=== PATIENT | male | born 1970 | race Caucasian/White ===

== ENCOUNTER → 2017-02-08 | Outpatient (CLI) | payer BC ==
--- NOTE | 2017-02-08 15:10 | CT ---
EXAMINATION TYPE: CT abdomen pelvis wo con DATE OF EXAM: 02/08/2017 COMPARISON: 04/27/2010 HISTORY: 46-year-old male Hematuria and bilateral flank pain CT DLP: 827 mGycm. Automated exposure control for dose reduction was used. TECHNIQUE: Contiguous axial scanning of the abdomen and pelvis without IV contrast. Coronal and sagit huseyin reconstructions performed. FINDINGS: The heart is normal size without pericardial effusion. Incidentally, there is a 2.3 cm low-density le angel along the right side of the cardiac base, axial image 4. Visualized lower lungs are otherwise cl ear without pleural effusion. There are a number of hypodense lesions within the liver measuring up to 2.8 cm and were present back on 04/27/2010 compatible with benign underlying lesion such as complicated cysts or hemangiomas. Gallbladder, adrenal glands, spleen, and pancreas show no gross abnormality. Numerous nonobstructive right-sided renal calculi measuring up to 3 mm. Approximately 2 nonobstructiv e calculi in the left kidney measuring up to 3 mm. There is a 1.5 cm hypodense lesion posterior upper to midpole right kidney which seems to have an present on 04/27/2010 but now larger. A cyst is suspec elodia but it is incompletely characterized on this study. No suspicious calcification seen along the course of either ureter or hydronephrosis. No dilated small bowel, free fluid, or free air. Small fatty umbilical hernia. No mesenteric or retro peritoneal lymphadenopathy. Normal appendix. Mild stool within the right hemicolon Bladder is urine distended. 3 mm calcification posterior aspect of the left side of the bladder. Pros avila gland measures 3.7 cm wide. No abnormal fluid collection in the pelvis or pelvic lymphadenopathy seen. Bones: No osseous destructive process. IMPRESSION: 1. Bilateral nephrolithiasis measuring up to 3 mm. Calculi are numerous on the right side. 2. No hydronephrosis. However, a 3 mm calculus at the left UVJ could be at the ureteral orifice or c ould have already passed into the bladder. 3. Multiple liver lesions measuring up to 2.8 cm do not seem to represent cysts but were present cady k in 2009 suggesting a benign etiology. 4. Incidentally seen 2.3 cm lesion along the right side of the cardiac base. A pericardial cyst is f avored. Recommend contrast enhanced CT chest on a nonemergent basis to further characterize. This cou ld be performed in 3 months and would also determine interval stability.
== END | disposition home or self-care (01) ==
LOC: RADCTMAIN 14:16
PROVIDERS: ATTEND Family Medicine
DX: N20.0 Calculus of kidney (principal); N20.1 Calculus of ureter; K76.9 Liver disease, unspecified
CPT/HCPCS: 74176

== ENCOUNTER → 2017-02-16 | Outpatient (CLI) | payer BC ==
--- NOTE | 2017-02-16 18:25 | CT ---
EXAMINATION TYPE: CT chest abdomen w con DATE OF EXAM: 02/16/2017 COMPARISON: 02/08/2017 HISTORY: Abnormal scan on 02/08/17. Follow up. CT DLP: 625.1 mGycm. Automated Exposure Control for Dose Reduction was Utilized. CONTRAST: CT scan of the thorax, abdomen and pelvis is performed with IV Contrast, patient injected with 100 mL of Omnipaque 300. FINDINGS: The lungs are clear of infiltrate. There is no evidence of a pulmonary mass. There is a 2.5 x 2 cm ov al-shaped fluid area at the right cardiac border that is probably a pericardial cyst. There is no ple ural effusion. There are multiple low-density areas in the liver that measure up to 2.5 cm. There is some peripheral contrast emesis probably due to hemangiomata. Spleen pancreas gallbladder appear normal. Bile ducts are not dilated. There is no adrenal mass. There is a 2 cm cortical cyst on the posterior left kidney. There is no hyd ronephrosis. There is no retroperitoneal adenopathy. Appendix appears normal. There is no ascites. I see no intestinal wall thickening. There are no dilated loops. I see no bony destructive process. IMPRESSION: Small pericardial cyst on the right side without significant change compared to 02/08/2017 . Small left renal cortical cyst. Multiple hypodense liver lesions consistent with hemangiomata that ar e unchanged. These appear unchanged compared to 04/27/2010. No evidence of renal obstruction.
== END | disposition home or self-care (01) ==
LOC: RADCTMAIN 15:28
PROVIDERS: ATTEND Family Medicine
DX: I31.8 Other specified diseases of pericardium (principal); K76.89 Other specified diseases of liver; R22.2 Localized swelling, mass and lump, trunk; Z88.0 Allergy status to penicillin
CPT/HCPCS: 71260; 74160; Q9967

== ENCOUNTER → 2018-05-16 | Outpatient (CLI) | payer BC ==
--- NOTE | 2018-05-16 17:01 | CONS ---
CONSULTATION REASON FOR CONSULTATION: Loud snoring. This is a 48-year-old male patient whose primary care physician is Dr. Bazzi. He presented to the sleep center because of loud snoring and some concerns about him quitting breathing at night. The patient has been sleeping next to for the past 10 years. He has been told that he snores very loudly, to the point where she is unable to sleep with him in the same bedroom. They typically go to bed at around 11:00, and between 11 and 2 he sleeps in the same bedroom and ultimately has to move out or she has to move out because of his loud snoring. At times he has been also noted to quit breathing. 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 He does not feel drowsy or sleepy or non- refreshed. His Keyport Score is 10. He has never been involved in a motor vehicle accident nor has he slept behind the wheel for any reason. He sleeps on his side. He occasionally drinks alcohol. No history of excessive caffeine intake. No grinding of the teeth. No sleepwalking. No anxiety. No palpitation. No heartburn. No restlessness in the lower extremities. This patient typically goes to bed around midnight and wakes up at 7:30 in the morning. He averages around 7 hours of sleep. It takes him a few minutes to fall asleep. He does not take any naps during the day. His weight has been stable at around 170. PAST MEDICAL HISTORY: parathyroid lesion, hyperparathyroidism, post parathyroidectomy. PAST SURGICAL HISTORY: Past surgical includes: 1. Parathyroidectomy. 2. Melanoma resection. 3. Tonsillectomy. DRUG ALLERGIES: NOT KNOWN. MEDICATIONS: None. SOCIAL HISTORY: Drinks alcohol socially, around 5 drinks a day. No history of smoking. No history of IV drugs. FAMILY HISTORY: Negative for sleep apnea. REVIEW OF SYSTEMS: Twelve-point review of systems was done. The positive findings are all mentioned above in the history of present illness. No history of nasal septal deviation. No history of any chronic allergic rhinitis. At times the patient is having some irritation in the back of his throat, yet he does not have any dysphagia. No previous choking or aspiration. No sleepwalking. No anxiety or panic attacks. No heartburn. No restlessness in the lower extremities. No sleeptalking. No anxiety. No depression. No irritability. No difficulties with concentration or memory. No problems with sexual dysfunction. PHYSICAL EXAMINATION: BP 142/80, pulse 83, respirations 14, temperature 98.5, saturation 97% on room air. Height 5 feet 8 inches, weight 168 and Keyport score is 10, BMI 25.3, neck size 15. GENERAL APPEARANCE: Calm, comfortable. Head is atraumatic, normocephalic. NECK: Supple. There is no JVD. No goiter or neck mass. Mallampati class IV. No macroglossia. No micrographia. No overbite. LUNGS: Clear to auscultation. HEART: Heart sounds are regular rate and rhythm. Normal S1, S2. No S3, S4. No murmurs. ABDOMEN: Soft, nontender. No organomegaly. EXTREMITIES: No edema. No cyanosis or clubbing. NEUROLOGIC: Alert and oriented x3. No focal neurological deficits. Psychiatrically there is no anxiety or depression. IMPRESSION: Loud snoring. This loud snoring could be in a setting of obstructive sleep apnea; however, the possibility of primary habitual snoring cannot be completely excluded. I am unable to say, based on the patient's symptoms, whether there is sleep apnea, although I have probably a low to medium suspicion. The patient is not obese and he does not have the typical anatomic manifestations of obstructive sleep apnea. Yet there is history of witnessed snoring and this may need to be further investigated. PLAN: Set up this patient for a home sleep study. The home sleep study will be able to tell us if there is any significant sleep breathing disorder contributing to this patient's symptoms, and further recommendations are to follow accordingly. Meanwhile, the patient was advised to sleep on his side, keep the head of the bed elevated, avoid alcoholic beverages late at night time. May benefit from an ENT evaluation at a later stage to see if there are any anatomic problems with his nasal passages contributing to his loud snoring. We will continue to follow. MMODL / IJN: [id number] /
== END | disposition home or self-care (01) ==
LOC: SLEEP 14:01
PROVIDERS: ATTEND Internal Medicine Critical Care Medicine
DX: R06.83 Snoring (principal); Z90.89 Acquired absence of other organs; Z98.890 Other specified postprocedural states
CPT/HCPCS: 99211

== ENCOUNTER 2020-08-13 08:12 | Day surgery (SDC) | payer BC ==
[2020-08-08 09:47] VITALS: BMI 25.1
[~2020-08-13 08:12] MED LIST: DEXAMETHASONE SOD PHOSPHATE 4 MG/ML 1 ML VIAL IV ONE; HYDROmorphone 0.5 MG/0.5 ML SYRINGE IVP PRN; LACTATED RINGERS 1,000 ML IV SCH; ONDANSETRON 4 MG/2 ML VIAL IVP ONE
--- NOTE | 2020-08-13 08:43 | P.GSHP ---
History of Present Illness H&P Date: 08/13/20 CHIEF COMPLAINT: Colon screen HISTORY OF PRESENT ILLNESS: The patient is a 50-year-old male who presents for colon screen. Lower endoscopy was offered for further evaluation and management. PAST MEDICAL HISTORY: Please see list. PAST SURGICAL HISTORY: Please see list. MEDICATIONS: Please see list. ALLERGIES: Please see list. SOCIAL HISTORY: No illicit drug use FAMILY HISTORY: No reports of Crohn disease or ulcerative colitis. REVIEW OF ORGAN SYSTEMS: CONSTITUTIONAL: No reports of fevers or chills. PHYSICAL EXAM: VITAL SIGNS: Stable GENERAL: Well-developed pleasant in no acute distress. HEENT: No scleral icterus. Extraocular movements grossly intact. Moist buccal mucosa. NECK: Supple without lymphadenopathy. CHEST: Unlabored respirations. Equal bilateral excursions. CARDIOVASCULAR: Regular rate and rhythm. Distal 2+ pulses. ABDOMEN: Soft, nontender, nondistended. MUSCULOSKELETAL: No clubbing, cyanosis, or edema. ASSESSMENT: 1. Colon screen. PLAN: 1. Recommend proceeding with a lower endoscopy Past Medical History Past Medical History: Cancer, Sleep Apnea/CPAP/BIPAP Additional Past Medical History / Comment(s): hx of melanoma, no cpap History of Any Multi-Drug Resistant Organisms: None Reported Additional Past Surgical History / Comment(s): parathyroidectomy, melanoma from back removed, colonoscopy Past Anesthesia/Blood Transfusion Reactions: No Reported Reaction Smoking Status: Never smoker Medications and Allergies Home Medications Medication Instructions Recorded Confirmed Type No Known Home Medications 08/08/20 08/08/20 History Allergies Allergy/AdvReac Type Severity Reaction Status Date / Time Penicillins Allergy Rash/Hives Verified 08/08/20 09:44
[2020-08-13] MEDS ORDERED: LIDOCAINE 1% (10MG/ML) FOR IV START INTRADERMA ONE (09:00)
[2020-08-13 09:04] VITALS: RESP 16; TEMP 97.6
[2020-08-13] MEDS ORDERED: PROPOFOL 10 MG/ML 20 ML VIAL IV ONE (09:25)
--- NOTE | 2020-08-13 09:52 | P.PCN ---
Date of Procedure: 08/13/20 Description of Procedure: PREOPERATIVE DIAGNOSIS: Colonoscopy screening. POSTOPERATIVE DIAGNOSIS: Colonoscopy screening. Diverticulosis, scattered. OPERATION: Colonoscopy to the cecum, ileocecal valve and appendiceal orifice. SURGEON: Tracy Lynch MD. ANESTHESIA: MAC. INDICATIONS: The patient is a 50-year-old male who presents for colonoscopy screening. Benefits and risks were described and informed consent was obtained. DESCRIPTION OF PROCEDURE: The patient had undergone Suprep. He had been brought into the operating room and laid in the left lateral decubitus position. After adequate intravenous sedation, the rectum was examined with 2% lidocaine jelly. No external hemorrhoids were encountered. The rectal tone was within normal limits. No lesions were palpated in the rectal vault. An Olympus colonoscope was advanced until the cecum, ileocecal valve and appendiceal orifice were clearly viewed. The prep was excellent. Scattered diverticulosis was encountered. No colonic polyps were found. No evidence of focal colitis was found. Retroflexion of the scope demonstrated grade 1 internal hemorrhoids without active bleeding or inflammation. The colon was desufflated. The patient had tolerated the procedure well. Withdrawal time was over 6 minutes. FINDINGS: Aronchick preparation quality scale (1-5) Internal hemorrhoids, grade 1 No external prolapsed hemorrhoids. No arteriovenous malformations. No adenomatous polyps. No focal colitis. RECOMMENDATIONS: Lower endoscopy 2030 Plan - Discharge Summary Discharge Rx Participant: No New Discharge Prescriptions: No Action No Known Home Medications Discharge Medication List No Known Home Medications 08/08/20 [History] Follow up Appointment(s)/Referral(s): Tracy Lynch MD [STAFF PHYSICIAN] - As Needed Patient Instructions/Handouts: Colonoscopy (DC), *Surgery [facility] - (Anesthesia) Endoscopy Discharge Instructions, Diverticulosis Diet (GEN), Diverticulosis (DC) Activity/Diet/Wound Care/Special Instructions: Repeat colonoscopy 2030 Discharge Disposition: HOME SELF-CARE
[2020-08-13 10:22] VITALS: BP 110/71; PULSE 85
== END 2020-08-13 10:45 | disposition home or self-care (01) ==
LOC: ORWHC2ENDO 08:12
PROVIDERS: ATTEND Surgery Plastic and Reconstructive Surgery
DX: Z12.11 Encounter for screening for malignant neoplasm of colon (principal); K57.30 Diverticulosis of large intestine without perforation or abscess without bleeding; K64.0 First degree hemorrhoids; G47.33 Obstructive sleep apnea (adult) (pediatric); E89.2 Postprocedural hypoparathyroidism; K21.9 Gastro-esophageal reflux disease without esophagitis; Z88.0 Allergy status to penicillin; Z85.820 Personal history of malignant melanoma of skin; Z98.890 Other specified postprocedural states
CPT/HCPCS: G0121; J2704; 45378

== ENCOUNTER → 2021-01-13 | Outpatient (CLI) | payer BC ==
--- NOTE | 2021-01-13 15:10 | MR ---
EXAMINATION TYPE: MR cervical spine wo con DATE OF EXAM: 01/13/2021 COMPARISON: None HISTORY: Headaches, neck pain for 3 months, numbness down legs. TECHNIQUE: Multiplanar, multisequence images of the cervical spine were acquired. C2-C3: There is right-sided uncovertebral and facet arthropathy without sequelae. C3-C4: No evidence for degenerative disc disease. No disc bulge/herniation or protrusion. No Canal stenosis. Foramina are patent bilaterally. C4-C5: There is mild uncovertebral arthropathy on the right without sequelae. C5-C6: There is a disc osteophyte complex with bilateral uncovertebral and facet arthropathy with mod erate right neural foraminal narrowing and mild central canal stenosis. C6-C7: There is a disc osteophyte complex with bilateral uncovertebral and right facet arthropathy wi thout sequelae. C7-T1: No evidence for degenerative disc disease. No disc bulge/herniation or protrusion. No Canal stenosis. Foramina are patent bilaterally. The cervical medullary junction is grossly unremarkable. The spinal cord is normal in caliber and sig nal. There is slight reversal of the normal cervical lordosis with minimal retrolisthesis of C5 on 6 measu ring 3 mm. Multilevel endplate degenerative changes are noted. Multilevel loss of intervertebral disc height and signal is seen. IMPRESSION: Slight reversal of normal cervical lordosis with multilevel disc disease and osteoarthritic changes w orst at C5-6 where there is also minimal retrolisthesis.
== END | disposition home or self-care (01) ==
LOC: RADMRIMAIN 10:37
PROVIDERS: ATTEND Psychiatry & Neurology Neurology
DX: M47.812 Spondylosis without myelopathy or radiculopathy, cervical region (principal); M48.02 Spinal stenosis, cervical region; M50.322 Other cervical disc degeneration at C5-C6 level; M43.12 Spondylolisthesis, cervical region
CPT/HCPCS: 72141

== ENCOUNTER → 2021-02-09 | Outpatient (CLI) | payer BC ==
--- NOTE | 2021-02-09 14:26 | MR ---
EXAMINATION TYPE: MR tspine/lspine wo con DATE OF EXAM: 02/09/2021 COMPARISON: None HISTORY: Demyelination, lumbar spinal stenosis, leg numbness/tingling char, chronic low back pain TECHNIQUE: Multiplanar, multisequence imaging of the thoracic and lumbar spine is performed without I V contrast. FINDINGS: There is straightening of the normal thoracic kyphosis. There is no significant central canal stenosi s or neural foraminal narrowing of the thoracic spine. C5-6 disc osteophyte complex is present with mild reversal of the normal cervical lordosis. This stud y was not tailored to evaluate the cervical spine. The spinal cord is normal in caliber and signal. Multiple T2 bright lesions are incompletely evaluated in the liver. There is a disc bulge at L4-5 with an annular tear resulting in mild bilateral neural foraminal narro wing. IMPRESSION: Multilevel disc disease changes throughout the spine, as described. Please note, MRI with and without contrast may be indicated if there is clinical concern for demyelin ation.
== END | disposition home or self-care (01) ==
LOC: RADMRIMAIN 11:44
PROVIDERS: ATTEND Psychiatry & Neurology Neurology
DX: M48.061 Spinal stenosis, lumbar region without neurogenic claudication (principal); M51.26 Other intervertebral disc displacement, lumbar region; M47.896 Other spondylosis, lumbar region; G37.9 Demyelinating disease of central nervous system, unspecified; G57.13 Meralgia paresthetica, bilateral lower limbs
CPT/HCPCS: 72146; 72148

== ENCOUNTER → 2021-03-06 | Outpatient (CLI) | payer BC ==
[2021-03-07 04:06] LABS: African American GFR (CKD) 101.3 (60.0-200.0); Anion Gap 8.6 mmol/L (4.00-12.00); Calcium 9.1 mg/dL (8.7-10.3); Carbon Dioxide 27.4 mmol/L (21.6-31.8); Non-African American GFR(CKD) 87.4 (60.0-200.0); Potassium 4.2 mmol/L (3.5-5.5)
[2021-03-07 04:14] LABS: T4, Free (Free Thyroxine) 1.1 ng/dL (0.80-1.80)
== END | disposition home or self-care (01) ==
LOC: LABWHC1 14:46
PROVIDERS: ATTEND Psychiatry & Neurology Neurology
DX: G62.9 Polyneuropathy, unspecified (principal); R20.2 Paresthesia of skin
CPT/HCPCS: 36415; 80048; 82175; 82570; 82607; 82746; 83655; 83825; 84165; 84439; 84443; 85652; 86038; 86618

== ENCOUNTER → 2021-04-14 | Outpatient (CLI) | payer BC ==
--- NOTE | 2021-04-14 16:30 | CONS ---
CONSULTATION REASON FOR CONSULTATION: Sleep apnea. Santos is a 50-year-old male patient with an established diagnosis of obstructive sleep apnea based on a home sleep study that was done on 05/22/2018. At that time the patient was found to have moderate to severe disease with an AHI of 28, and he had a low pulse ox of 75%. I offered APAP therapy for this patient at that time. However, he declined the treatment, and over the years he has become more symptomatic and he is coming in for reevaluation, requesting treatment. He used to weigh 168 pounds and his current weight is up to 173. His Eunice score is at 6. No new-onset comorbid conditions for now. He is going to bed around midnight, waking up at 7:20 a.m. in the morning. He feels somnolent and sleepy during the day. He snores and quits breathing, occasionally wakes up gasping for air. He drinks caffeinated beverages, around one beverage on a daily basis to keep himself awake and stimulated. No sleep paralysis. No hallucinations. No cataplexy. He sleeps on his side. PAST MEDICAL HISTORY: 1. Obstructive sleep apnea based on a sleep study in 2018. 2. Melanoma. 3. History of kidney stones with hyperparathyroidism. PAST SURGICAL HISTORY: Melanoma resection, parathyroid resection and tonsillectomy. DRUG ALLERGIES: PENICILLIN. OUTPATIENT MEDICATIONS: None. SOCIAL HISTORY: Nonsmoker. No history of alcoholism. No history of IV drugs. FAMILY HISTORY: Negative for any form of sleep breathing disorder. REVIEW OF SYSTEMS: Fourteen-point review of system was done. Positive findings are all mentioned in history of present illness. PHYSICAL EXAMINATION: VITAL SIGNS: BP is 123/87, pulse 84, respirations 16, temperature 98.5, saturation 96% on room air. Height is 5 feet 8 inches, weight is 173. Neck size 14-3/4 inches. GENERAL APPEARANCE: Calm, comfortable. HEAD: Atraumatic, normocephalic. NECK: Supple. No JVD. No goiter or neck masses. Mallampati class 4. LUNGS: Clear to auscultation. HEART: Heart sounds are regular rate and rhythm. Normal S1, S2. No S3, S4. No murmurs. ABDOMEN: Soft, nontender. No organomegaly. EXTREMITIES: No edema. No cyanosis or clubbing. NEUROLOGIC: Awake and alert. There is no focal neurological deficit. PSYCHIATRIC: Negative for anxiety or depression. IMPRESSION: 1. Obstructive sleep apnea, moderate to severe, based on a sleep study that was done in 2018. The patient is coming in for re-evaluation. 2. Hypersomnia, as the patient is not receiving any CPAP treatment at this point in time. 3. History of hyperparathyroidism, post parathyroidectomy. 4. History of melanoma, resected. 5. History of tonsillectomy. PLAN: 1. Proceed with another home sleep study to reassess the presence and severity of obstructive sleep apnea. 2. The patient will likely need treatment and this will largely depend on the results of the home sleep study that needs to be updated. 3. Encourage weight loss and optimize sleep hygiene measures. 4. Will continue to follow and will offer treatment based on the results of the home sleep study. JOHN / AMANDA: [id number] /
== END | disposition home or self-care (01) ==
LOC: SLEEP 12:57
PROVIDERS: ATTEND Internal Medicine Critical Care Medicine
DX: G47.33 Obstructive sleep apnea (adult) (pediatric) (principal)
CPT/HCPCS: 99211

== ENCOUNTER → 2021-05-01 | Outpatient (CLI) | payer BC | END | disposition home or self-care (01) | LOC: LABWHC1 11:59 | PROVIDERS: ATTEND Psychiatry & Neurology Neurology | DX: G62.9 Polyneuropathy, unspecified (principal); R20.2 Paresthesia of skin | CPT/HCPCS: 36415; 86618 ==

== ENCOUNTER → 2021-12-03 | Outpatient (CLI) | payer BC ==
--- NOTE | 2021-12-03 11:05 | XR ---
EXAMINATION TYPE: XR cervical spine comp DATE OF EXAM: 12/03/2021 COMPARISON: NONE HISTORY: Pain TECHNIQUE: Four views are submitted. FINDINGS: The odontoid is intact. There are no compression deformities. The prevertebral soft tissue structur es are within normal limits. There is severe degenerative disc disease C5-6 and C6-C7 with posterior spondylosis and anterior spurring. Moderate changes C4-C5. Facet arthropathy at these levels. Forami nal encroachment C4-5 and C5-C6 IMPRESSION: 1. Since severe degenerative disc disease lower cervical spine with posterior spondylosis and foramin al encroachment recommend MRI. Correlate for canal stenosis.
[2021-12-03 19:46] LABS: Basophils # (A) 0.06 X 10*3/uL (0.00-0.10); Eosinophils # (A) 0.08 X 10*3/uL (0.04-0.35); Eosinophils % (A) 1.3 %; HGB 15.6 g/dL (13.0-17.0); Immature Grans, Automated 0.8 %; Lymphocytes # (A) 1.77 X 10*3/uL (0.90-5.00); Lymphocytes % (A) 29.4 %; MCH 31.1 pg (27.0-32.0); MCHC 33.2 g/dL (32.0-37.0); MCV 93.8 fL (80.0-97.0); Mean Platelet Volume 12.5 fL (9.5-12.2); Monocytes # (A) 0.69 X 10*3/uL (0.20-1.00); Monocytes % (A) 11.4 %; NRBC Per 100 WBC 0 /100 WBCS (0.0-0.0); Neutrophils # (A) 3.38 X 10*3/uL (1.80-7.70); Neutrophils % (A) 56.1 %; Platelet Count 198 X 10*3/uL (140-440); RBC 5.01 X 10*6/uL (4.40-5.60); WBC 6.03 X 10*3/uL (4.50-10.00)
[2021-12-03 19:49] LABS: ALT 37 U/L (10-49); AST 41 U/L (14-35); African American GFR (CKD) 100.6 (60.0-200.0); Albumin 4.6 g/dL (3.8-4.9); Alkaline Phosphatase 75 U/L (41-126); Calcium 9.2 mg/dL (8.7-10.3); Carbon Dioxide 26.4 mmol/L (20.0-27.5); Chloride 105 mmol/L (96-109); Chol/HDL Ratio 3.69 Ratio; Globulin 2.3 g/dL (1.6-3.3); Glucose 90 mg/dL (70-110); LDL Cholesterol,Calculated 126.7 mg/dL (0.0-131.0); Non-African American GFR(CKD) 86.8 (60.0-200.0); Potassium 4.6 mmol/L (3.5-5.5); Sodium 140 mmol/L (135-145); Total Protein 6.9 g/dL (6.2-8.2); VLDL Calculation 16.18 mg/dL (5.00-40.00)
== END | disposition home or self-care (01) ==
LOC: RADXRMAIN 10:24
PROVIDERS: ATTEND Family Medicine
DX: Z12.5 Encounter for screening for malignant neoplasm of prostate (principal); Z00.00 Encounter for general adult medical examination without abnormal findings; M54.2 Cervicalgia
CPT/HCPCS: 72050; 80053; 80061; 82306; 84153; 84439; 84443; 85025

== ENCOUNTER → 2024-06-25 | Outpatient (CLI) | payer BC, MEDICARE | END | disposition home or self-care (01) | LOC: LABWHC1 10:26 | PROVIDERS: ATTEND Urology | DX: R97.20 Elevated prostate specific antigen [PSA] (principal) | CPT/HCPCS: 36415; 84153 ==